=== PATIENT | male | born 1990 | race African-American/Black ===

== ENCOUNTER 2018-11-09 17:24 | Emergency (ER) | payer MEDICAID ==
[~2018-11-09] VITALS: Ht 160 cm; Wt 114.0 kg
[2018-11-09 18:23] VITALS: BP 158/99
== END 2018-11-09 20:20 | disposition left against medical advice (07) ==
LOC: ER 17:40
DX: Z53.21 Procedure and treatment not carried out due to patient leaving prior to being seen by health care provider (principal)
CPT/HCPCS: 93005